=== PATIENT | female | born 1980 | race Two or more races ===

== ENCOUNTER 2019-07-28 09:23 | Outpatient (CLI) | payer OTHER | END 2019-07-28 09:41 | disposition home or self-care (01) | LOC: RX STUDY 09:23 | DX: N84.0 Polyp of corpus uteri (principal); D25.0 Submucous leiomyoma of uterus ==

== ENCOUNTER 2020-10-11 08:37 | Outpatient (CLI) | payer OTHER | END 2020-10-11 08:49 | disposition home or self-care (01) | LOC: SONOGRAMA 08:37 | PROVIDERS: ATTEND Obstetrics & Gynecology Reproductive Endocrinology | DX: N93.8 Other specified abnormal uterine and vaginal bleeding (principal) ==